=== PATIENT | male | born 1955 | race African-American/Black ===

== ENCOUNTER → 2018-07-01 | Outpatient (CLI) | payer OTHER ==
[~2018-07-01] VITALS: Ht 190.5 cm; Wt 78.5 kg
[~2018-07-01] MED LIST: ACYCLOVIR 200200 MG PO; ALPHAGAN P10 ML; AMLODIPINE BESY10 MG; ASACOL; COMBIGAN EYE DR10 ML OPHTHALMIC; LOPRESSOR100 MG; LORTAB 5 MG/5001 TA1 PO; LUMIGAN2.5 M1 OPHTHALMIC; MESALAMINE1.2 GM PO; PREDNISONE 10 M10 M1 PO; TOPROL; TOPROL XL100 MG PO; XALATAN2.5 ML; [UNRECOGNIZED DRUG - REMARK]
--- NOTE | ~2018-07-01 | P ---
[facility] [place] [address] PROCEDURE REPORT Name: SUZAN METZGER Room #: REG [facility]#: [id number] Admission: 07/01/18 Attend Phys: Bon Kim MD Discharge: Date of : 57 Report #: [id number] THIS REPORT FOR: //name// CC: Bon Willis MD DATE OF SERVICE: 07/01/2018 BRIEF HISTORY: The patient is a 63-year-old male well known to me with a history of left-sided ulcerative colitis. He presents for surveillance colonoscopy due to his history of inflammatory bowel disease. PREOPERATIVE DIAGNOSIS: Chronic left-sided ulcerative colitis. POSTOPERATIVE DIAGNOSES: 1. Left-sided ulcerative colitis in remission. 2. Internal hemorrhoids. MEDICATIONS: Deep sedation with propofol per anesthesia. SPECIMENS: 1. Random biopsies of cecum, ascending colon. 2. Random biopsies, transverse colon. 3. Random biopsies, descending colon. 4. Random biopsy, sigmoid colon. 5. Random biopsies, rectum. ESTIMATED BLOOD LOSS: 5 mL. PROCEDURE: Colonoscopy to cecum and terminal ileum with biopsy. FINDINGS: Prior to propofol sedation, procedure of colonoscopy was reviewed with the patient as well as potential risks and its complications. He indicates he understands and desires to proceed. DESCRIPTION OF PROCEDURE: With the patient in left lateral decubitus position, digital examination was completed, which revealed no abnormalities. Subsequently, the Olympus video colonoscope was introduced in the rectum, advanced under direct vision to the cecum. Done with minimal difficulty. Cecum was identified by the ileocecal valve and the appendiceal orifice. I was able to visualize the distal segment of terminal ileum, which was inspected and noted to be unremarkable. Specifically, there was no evidence of inflammatory bowel disease in his ileum. At that point, the scope was slowly withdrawn and careful circumferential views were obtained. The prep was excellent with the exception of some retained pill material within the cecum. The mucosa was within normal [facility] [address] [place] [address] PROCEDURE REPORT Name: SUZAN METZGER Room #: REG [facility].#: [id number] Admission: 07/01/18 Attend Phys: Bon Kim MD Discharge: Date of : 57 Report #: [id number] limits, normal vascular pattern, normal light reflex was intact throughout the entire colon. There is no evidence of active inflammatory bowel disease. Multiple random biopsies were obtained throughout the colon. The scope was drawn throughout the colon. No neoplastic lesions were seen. Scope was drawn in the rectum and upon retroflexion, moderate internal hemorrhoids were seen. Scope was withdrawn. The patient tolerated the procedure well. CONDITION OF THE PATIENT UPON DISCHARGE: Following procedure, the patient was drowsy, arousable, conversant and will be discharged home when fully ambulatory. INSTRUCTIONS TO THE PATIENT AND FAMILY AT THE TIME OF DISCHARGE: No neoplastic inflammatory change is seen. We will follow up on surveillance biopsies. If there is no dysplasia, we will have him return in 3 years. If dysplasia is present; however, he may require further intervention. He will continue his mesalamine on a long-term basis. Continue to see him in the office at least annually. <ELECTRONICALLY SIGNED> By: Bon Kim MD 07/06/18 [id number] Bon Kim MD /nt
--- NOTE | ~2018-07-01 | PATH ---
[facility] [place] [address] PATHOLOGY RPT PROCEDURE Name: ISMAEL METZGER Room #: REG [facility] Donna.#: [id number] Admission: 07/01/18 Date of : 57 Discharge: Report #: [id number] Path Case #: [id number] [facility] Accession Number: [id number] . 01 Material submitted: . PART A: CECUM AND ASCENDING COLON PART B: BIOPSY OF TRANSVERSE COLON PART C: BIOPSY OF DESCENDING COLON PART D: BIOPSY OF SIGMOID COLON PART E: BIOPSY OF RECTUM . 01 Clinician provided ICD-10: K51.90 . 01 Clinical history: . Ulcerative colitis Rule out colitis and dysplasia . 02 Diagnosis: A. Large intestine mucosa, cecum and ascending colon, endoscopic biopsy: - Mild chronic active colitis with a rare focus of cryptitis, history of ulcerative colitis. - Negative for dysplasia or malignancy. . B. Large intestine mucosa, transverse colon to rule out colitis, endoscopic biopsy: - Mild chronic active colitis with a rare focus of cryptitis, history of ulcerative colitis. - Negative for dysplasia or malignancy. . C. Large intestine mucosa, descending colon to rule out colitis, endoscopic biopsy: - Mild chronic active colitis with a rare focus of cryptitis, history of ulcerative colitis. - Negative for dysplasia or malignancy. . D. Large intestine mucosa, sigmoid colon to rule out colitis, endoscopic biopsy: - Mild chronic active colitis with a rare focus of cryptitis, history of ulcerative colitis. - Negative for dysplasia or malignancy. . E. Large intestine mucosa, rectum, endoscopic biopsy: - Mild chronic active colitis with a rare focus of cryptitis, history of ulcerative colitis. - Negative for dysplasia or malignancy. . (IUV:instrument mechanic weapons system; 07/02/2018) [address] [address] PATHOLOGY RPT PROCEDURE Name: ISMAEL METZGER [facility] [id number] Admission: 07/01/18 Date of : 57 Discharge: Report #: [id number] Path Case #: [id number] [facility]/07/02/2018 . 02 Electronically signed: . Gabriella Armendariz MD, Pathologist NPI- [id number] . 01 Gross description: . A. The specimen is received in formalin, labeled "Ismael Metzger, BX of cecum and ascending colon", are multiple irregular fragments of rivas soft tissues measuring 1.0 x 0.7 x 0.2 cm in aggregate. The specimen is entirely submitted in A1. . B. The specimen is received in formalin, labeled "Erik Metzgere, BX of transverse colon", are multiple irregular fragments of rivas soft tissues measuring 1.0 x 0.6 x 0.2 cm in aggregate. The specimen is entirely submitted in B1. . C. The specimen is received in formalin, labeled "Kemar, Ismael, BX of descending colon", are multiple irregular fragments of rivas soft tissues measuring 1.0 x 0.3 x 0.2 cm in aggregate. The specimen is entirely submitted in C1. . D. The specimen is received in formalin, labeled "Erik Metzgere, BX of sigmoid colon", are multiple irregular fragments of rivas soft tissues measuring 1.0 x 0.5 x 0.1 cm in aggregate. The specimen is entirely submitted in D1. . E. The specimen is received in formalin, labeled "Erik Metzgere, BX of rectum", are multiple irregular fragments of rivas soft tissues measuring 1.0 x 0.5 x 0.2 cm in aggregate. The specimen is entirely submitted in E1. (SWS; 07/01/2018) SHS/SHS . 02 Pathologist provided ICD-10: K52.9 . 02 CPT . 271309, 979125, 281688, 444943, 303840 Specimen Comment: A courtesy copy of this report has been sent to Specimen Comment: [phone], . Specimen Comment: Report sent to / DR CUELLAR Performed at: [address], [place] [id number] MD Olaf Coleman MD Phone: [phone] Performed at: [address] [address] PATHOLOGY RPT PROCEDURE Name: ISMAEL METZGER Room #: NEVILLE Dickinson#: [id number] Admission: 07/01/18 Date of : 57 Discharge: Report #: [id number] Path Case #: [id number] [address] [id number] MD Gabriella Armendariz MD Phone: [phone]
== END | disposition home or self-care (01) ==
LOC: GI 07:09
DX: K52.9 Noninfective gastroenteritis and colitis, unspecified (principal); K51.50 Left sided colitis without complications; K64.8 Other hemorrhoids; I10 Essential (primary) hypertension; Z90.49 Acquired absence of other specified parts of digestive tract; Z98.41 Cataract extraction status, right eye; Z98.42 Cataract extraction status, left eye; Z86.73 Personal history of transient ischemic attack (TIA), and cerebral infarction without residual deficits; Z98.890 Other specified postprocedural states; Z79.899 Other long term (current) drug therapy
CPT/HCPCS: 62110; 62900

== ENCOUNTER → 2019-06-30 | Outpatient (CLI) | payer OTHER | LOC: RAD 09:22 | DX: M50.322 Other cervical disc degeneration at C5-C6 level (principal) ==

== ENCOUNTER 2021-08-14 17:45 | Emergency (ER) | payer OTHER ==
[~2021-08-14] VITALS: Ht 188 cm; Wt 72.6 kg
[2021-08-14 18:32] LABS: ABSOLUTE NEUTROPHILS 3.5 thou/uL (1.4-8.2); BASOPHILS 0.4 % (0.0-2.0); EOSINOPHILS 0.4 % (0.0-3.0); HEMATOCRIT 40.1 % (42.0-52.0); HEMOGLOBIN 13.3 gm/dL (14.0-18.0); MCH 29.9 pg (26.0-34.0); MCHC 33.1 g/dL (28.0-37.0); MCV 90.4 fL (80.0-100.0); MONOCYTES 7.6 % (1.0-8.0); PLATELET COUNT 163 thou/uL (150-400); POLYS 79.6 % (36.0-66.0); RBC 4.43 mil/uL (4.50-6.00); RDW 13.7 % (10.5-14.5); WBC 4.4 thou/uL (4.0-11.0)
[2021-08-14 18:35] LABS: CALCIUM 8.1 mg/dL (8.5-10.1); CREATININE 1.1 mg/dL (0.7-1.3); POTASSIUM 3.4 mmol/L (3.5-5.1)
[2021-08-14 18:46] LABS: ALBUMIN 3.5 g/dL (3.4-5.0); DIRECT BILIRUBIN 0.1 mg/dL (<0.1-0.2); MAGNESIUM 1.9 mg/dL (1.8-2.4); TOTAL BILIRUBIN 0.7 mg/dL (0.2-1.0); TOTAL PROTEIN 7.3 g/dL (6.4-8.2)
[2021-08-14] MEDS ORDERED: NAPROSYN500 MG PO (20:38)
[2021-08-14 21:50] VITALS: BP 125/76
--- NOTE | 2021-08-15 07:06 | EKG ---
[place] [address] [facility] 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
== END 2021-08-14 22:15 | disposition home or self-care (01) ==
LOC: ER 17:45
PROVIDERS: Emergency Medicine
DX: R07.89 Other chest pain (principal); R05.9 Cough, unspecified; I10 Essential (primary) hypertension; Z98.890 Other specified postprocedural states; Z79.891 Long term (current) use of opiate analgesic; Z79.899 Other long term (current) drug therapy

== ENCOUNTER 2021-08-19 05:28 | Emergency (ER) | payer OTHER ==
[~2021-08-19] VITALS: Ht 190.5 cm; Wt 77.1 kg
[~2021-08-19 05:28] MED LIST changes: +NAPROSYN500 MG PO
--- NOTE | 2021-08-19 07:41 | EKG ---
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: : 1955 Requested By: Feng Rodríguez Order Number: [id number] MD: Davey Woodson Measurements Intervals [place] Rate: 79 P: 58 [place]: 162 QRS: -25 QRSD: 99 T: 3 QT: 386 QTc: 443 Interpretive Statements Sinus rhythm Borderline left axis deviation Borderline T abnormalities, inferior leads Compared to ECG 08/14/2021 17:57:00 T-wave abnormality now present Electronically Signed On 08-19-2021 7:40:57 LIMNOLOGIST by Davey Woodson [email or web address] <ELECTRONICALLY SIGNED> By: Davey Woodson MD, [facility] 08/19/21 0740 0547 0547 Davey Woodson MD, FACC /EPI
[2021-08-19 08:00] VITALS: BP 120/70
== END 2021-08-19 08:00 | disposition home or self-care (01) ==
LOC: ER 05:28
DX: U07.1 COVID-19 (principal); R05.9 Cough, unspecified; R06.02 Shortness of breath; I10 Essential (primary) hypertension; Z90.49 Acquired absence of other specified parts of digestive tract; Z98.890 Other specified postprocedural states; Z79.891 Long term (current) use of opiate analgesic; Z79.899 Other long term (current) drug therapy